=== PATIENT | male | born 1965 | race Caucasian/White ===

== ENCOUNTER 2018-02-10 20:01 | Inpatient (IN) ==
[2018-02-10 20:47] VITALS: BMI 28.3
--- NOTE | 2018-02-10 21:34 | DR.GENAD ---
HPI Time Seen Time Seen by Provider: 02/10/18 21:19 PCP Primary Care Physician: ZAHIDA HANDY HPI Comment HPI Comment: DENIES FEVER. PATIENT FAILED OUT PATIENT TREATMENT. Complaint/Symptoms Chief Complaint Doctors Comments: PAIN, REDNESS AND RED STREAKING LEFT LOWER EXTREMITIES THAT IS GETTING WORSE. PATIENT IS ON BATRIM AND NOT IMPROVING. Chief Complaint:: LEFT LOWER EXTREMITY REDNESS, EDEMA. WARM TO TOUCH. NOTED REDNESS STREAKING ON OUTER CALF OF LEFT LEG. PATIENT DENIES ANY PAIN WITH AMBULATION, DENIES ANY PAIN AT ALL. +DORSALIS PEDIS Self Treatment fo Chief Complaint: RX BACTRIM Q 12HRS. FOR 7 DAYS Nurses notes reviewed Nurses Notes Review: Yes Source History Provided: Patient and Family Member Mode of Arrival Mode of Arrival: Ambulatory Timing Onset of Chief Complaint: 02/02/18 Came on: Suddenly Duration Duration: Constant Duration: Days Severity Severity: Moderate Modifying Factors Worsens:: WALKING. Improves:: NONE. Associated Signs and Symptoms Associated Signs and Symptoms: RED STREAKING, LEG PAIN. PMH PMH Past Medical History: Yes Past Medical History: Diabetes, Dyslipidemia and Hypothyroidism Past Surgical History: No Family History History of Family Medical Conditions: No Social History Does patient currently use any type of tobacco product: No Have you used tobacco products in the last 12 months: No Type of Tobacco Use: None Alcohol Use: None Do you use any recreational Drugs:: No Lives Where: Home infectious screening Have you traveled outside the country in the last 6 months?: No Isolation: Standard ROS Review of Systems Constitutional: No Symptoms Reported Eyes: No Symptoms Reported ENTM: No Symptoms Reported Respiratoy: No Symptoms Reported Cardiovascular: No Symptoms Reported Gastrointestinal/Abdominal: No Symptoms Reported Genitourinary: No Symptoms Reported Neurological: No Symptoms Reported Musculoskeletal: Left, Leg and Foot Integumentary: Change in Color, Rash and Other (SWELLING LEFT FOOT WITH REDNESS AND RED STREAKING TO KNEE LEVEL.) Hematologic/Lymphatic: No Symptoms Reported Endocrine: No Symptoms Reported Psychiatric: No Symptoms Reported All Other Systems: Reviewed and Negative PE Vital Signs Vitals: Temperature 97.5 F Pulse Rate [Left Brachial] 59 Pulse Rate 73 Respiratory Rate 20 Blood Pressure [Left Arm] 125/78 Blood Pressure 137/88 O2 Sat by Pulse Oximetry 99 General Limitations: No Limitations General Appearance: Alert and In No Apparent Distress Head Head Exam: Normal Inspection Eyes Eye exam: Normal Appearance ENT ENT Exam: Normal Exam External Ear Exam: Normal External Inspection TM/Canal Exam: Bilateral: Normal Nose Exam: Normal Nose Exam Mouth Exam: Normal Inspection Throat Exam: Normal Inspection Neck Neck Exam: Normal Inspection Chest Chest Inspection: Normal Inspection Respiratory Respiratory Exam: Normal Lung Sounds Bilat Respiratory Exam: Bilateral: Clear to Auscultation Cardiovascular Cardiovascular Exam: Regular Rate and Normal Rhythm Abdominal Exam Abdominal Exam: Normal Inspection, Normal Bowel Sounds and Soft Extremities Extremities Exam: Tenderness Back Back Exam: Normal Inspection Neurologic Neurological Exam: Alert and Oriented X3; negative Motor Sensory Deficit Psychiatric Psychiatric Exam: Normal Affect and Normal Mood Skin Skin Exam: Erythema MDM Additional Information Additional Information Obtained From: Family Differential Diagnosis Differential Diagnosis: CELLULITIS LLE COURSE Treatment Treatment: SEE ORDERS. Consultation Consultation Comments: DISCUSS PATIENT WITH DR. RAJPUT. HE WILL ADMIT PATIENT. Education/Counseling Education/Counseling: Patient, Family and Education Educated On: Diagnosis ROR Labs Reviewed Laboratory Results Reviewed?: Yes Result Diagrams: 02/11/18 04:18 02/11/18 04:18 Laboratory: WBC 5.9 X10^3/uL (3.6-10.0) 02/11/18 04:18 RBC 4.51 X10^6/uL (4.7-6.0) L 02/11/18 04:18 Hgb 14.1 g/dL (13.5-18.0) 02/11/18 04:18 Hct 39.2 % (42.0-54.0) L 02/11/18 04:18 MCV 87.1 fL (80.0-100.0) 02/11/18 04:18 MCH 31.2 pg (27.0-34.0) 02/11/18 04:18 MCHC 35.9 g/dL (33.0-35.0) H 02/11/18 04:18 RDW 13.0 % (11.6-16.5) 02/11/18 04:18 Plt Count 225 X10^3/uL (150.0-450.0) 02/11/18 04:18 MPV 8.7 fL (7.4-11.0) 02/11/18 04:18 Neut % (Auto) 43.8 % (42.0-75.0) 02/11/18 04:18 Lymph % (Auto) 35.4 % (21.0-51.0) 02/11/18 04:18 [place] % (Auto) 12.4 % (0.0-13.0) 02/11/18 04:18 Eos % (Auto) 7.8 % (0.9-2.9) H 02/11/18 04:18 Baso % (Auto) 0.6 % (0.2-1.0) 02/11/18 04:18 Neut # (Auto) 2.6 x10^3/uL (2.2-4.8) 02/11/18 04:18 Lymph # (Auto) 2.1 X10^3/uL (1.3-2.9) 02/11/18 04:18 [place] # (Auto) 0.7 x10^3/uL (0.3-0.8) 02/11/18 04:18 Eos # (Auto) 0.5 x10^3/uL (0.0-0.2) H 02/11/18 04:18 Baso # (Auto) 0.0 X10^3/uL (0.0-0.1) 02/11/18 04:18 Absolute Nucleated RBC 0.0 /100WBC 02/11/18 04:18 Sodium 137 mmol/L (136-145) 02/11/18 04:18 Corrected Sodium 139 mmol/L (136-145) 02/11/18 04:18 Potassium 3.9 mmol/L (3.5-5.1) 02/11/18 04:18 Chloride 102 mmol/L (98-107) 02/11/18 04:18 Carbon Dioxide 27.7 mmol/L (21-32) 02/11/18 04:18 BUN 14 mg/dL (7-18) 02/11/18 04:18 Creatinine 1.08 mg/dL (0.70-1.30) 02/11/18 04:18 Est GFR (MDRD) Af Amer > 60 (>60) 02/11/18 04:18 Est GFR (MDRD) Non-Af > 60 (>60) 02/11/18 04:18 Glucose 204 mg/dL (65-99) H 02/11/18 04:18 POC Glucose (mg/dL) 164 mg/dL (65-99) H 02/11/18 16:30 Lactic Acid 1.1 mmol/L (0.4-2.0) 02/10/18 21:44 Calcium 8.2 mg/dL (8.5-10.1) L 02/11/18 04:18 Corrected Calcium TNP 02/11/18 04:18 Total Bilirubin 0.30 mg/dL (0.2-1.0) 02/11/18 04:18 AST 24 Units/L (15-37) 02/11/18 04:18 ALT 54 Units/L (12-78) 02/11/18 04:18 Alkaline Phosphatase 83 Units/L (46-116) 02/11/18 04:18 C-Reactive Protein 9.40 mg/L (0-3.0) H 02/10/18 21:44 Total Protein 7.1 g/dL (6.4-8.2) 02/11/18 04:18 Albumin 3.4 g/dL (3.4-5.0) 02/11/18 04:18 Globulin 3.7 g/dL (2.5-4.5) 02/11/18 04:18 Albumin/Globulin Ratio 0.9 Ratio (1.1-2.1) L 02/11/18 04:18
[2018-02-10 22:13] LABS: BASOPHILS # (AUTO) 0.1 X10^3/uL (0.0-0.1); EOSINOPHILS # (AUTO) 0.5 x10^3/uL (0.0-0.2); EOSINOPHILS % (AUTO) 7.7 % (0.9-2.9); HEMATOCRIT 40.3 % (42.0-54.0); HEMOGLOBIN 14.3 g/dL (13.5-18.0); LYMPHOCYTES # (AUTO) 2.4 X10^3/uL (1.3-2.9); MEAN CORPUSCULAR HGB CONC 35.5 g/dL (33.0-35.0); MEAN CORPUSCULAR VOLUME 87.4 fL (80.0-100.0); MEAN PLATELET VOLUME 8.7 fL (7.4-11.0); MONOCYTES # (AUTO) 0.8 x10^3/uL (0.3-0.8); NEUTROPHILS # (AUTO) 2.7 x10^3/uL (2.2-4.8); NEUTROPHILS % (AUTO) 42.3 % (42.0-75.0); PLATELET COUNT 232 X10^3/uL (150.0-450.0); RED BLOOD COUNT 4.62 X10^6/uL (4.7-6.0); RED CELL DISTRIBUTION WIDTH 13.3 % (11.6-16.5); WHITE BLOOD COUNT 6.4 X10^3/uL (3.6-10.0)
[2018-02-10 22:22] LABS: ALANINE AMINOTRANSFERASE 57 Units/L (12-78); ALBUMIN 3.8 g/dL (3.4-5.0); ALKALINE PHOSPHATASE 93 Units/L (46-116); ASPARTATE AMINO TRANSFERASE 26 Units/L (15-37); BLOOD UREA NITROGEN 15 mg/dL (7-18); CARBON DIOXIDE 28.9 mmol/L (21-32); CHLORIDE 101 mmol/L (98-107); COR NA(FOR HYPERGLY) 138 mmol/L (136-145); CREATININE 1.33 mg/dL (0.70-1.30); SODIUM 136 mmol/L (136-145); TOTAL PROTEIN 7.8 g/dL (6.4-8.2); eGFR NON BLACK RACES 60 (>60)
[2018-02-10 22:28] LABS: LACTIC ACID 1.1 mmol/L (0.4-2.0)
[2018-02-11] MEDS ORDERED: NS 1000 ML 1,000 ML ONE (00:02)
[2018-02-11] MEDS ORDERED: VANCOMYCIN 1 GRAM PREMIX (ADDVANTAGE) 250 ML IV ONE (00:02)
[2018-02-11] MEDS ORDERED: MORPHINE SULFATE INJ 4 MG IVP PRN (00:11)
[2018-02-11] MEDS ORDERED: PHENERGAN TAB 25 MG PO PRN (00:11)
[2018-02-11] MEDS: NS 1000 ML 1,000 ML IV SCH ×3 (00:12→16:39)
[2018-02-11] MEDS: VANCOMYCIN HCL 1 GM VIAL 1 G in D5W 250 ML IV 250 ML IV SCH ×3 (00:12→20:28)
[2018-02-11] MEDS ORDERED: HumuLIN R SUBCUT PRN (00:14)
[2018-02-11 05:20] LABS: BASOPHILS % (AUTO) 0.6 % (0.2-1.0); EOSINOPHILS # (AUTO) 0.5 x10^3/uL (0.0-0.2); EOSINOPHILS % (AUTO) 7.8 % (0.9-2.9); HEMATOCRIT 39.2 % (42.0-54.0); HEMOGLOBIN 14.1 g/dL (13.5-18.0); LYMPHOCYTES # (AUTO) 2.1 X10^3/uL (1.3-2.9); LYMPHOCYTES % (AUTO) 35.4 % (21.0-51.0); MEAN CORPUSCULAR HEMOGLOBIN 31.2 pg (27.0-34.0); MEAN CORPUSCULAR HGB CONC 35.9 g/dL (33.0-35.0); MEAN CORPUSCULAR VOLUME 87.1 fL (80.0-100.0); MEAN PLATELET VOLUME 8.7 fL (7.4-11.0); MONOCYTES # (AUTO) 0.7 x10^3/uL (0.3-0.8); MONOCYTES % (AUTO) 12.4 % (0.0-13.0); NEUTROPHILS # (AUTO) 2.6 x10^3/uL (2.2-4.8); NEUTROPHILS % (AUTO) 43.8 % (42.0-75.0); PLATELET COUNT 225 X10^3/uL (150.0-450.0); RED BLOOD COUNT 4.51 X10^6/uL (4.7-6.0); WHITE BLOOD COUNT 5.9 X10^3/uL (3.6-10.0)
[2018-02-11 05:26] LABS: ALANINE AMINOTRANSFERASE 54 Units/L (12-78); ALBUMIN 3.4 g/dL (3.4-5.0); ALKALINE PHOSPHATASE 83 Units/L (46-116); ASPARTATE AMINO TRANSFERASE 24 Units/L (15-37); BLOOD UREA NITROGEN 14 mg/dL (7-18); CALCIUM 8.2 mg/dL (8.5-10.1); CARBON DIOXIDE 27.7 mmol/L (21-32); CHLORIDE 102 mmol/L (98-107); COR NA(FOR HYPERGLY) 139 mmol/L (136-145); CREATININE 1.08 mg/dL (0.70-1.30); SODIUM 137 mmol/L (136-145); TOTAL PROTEIN 7.1 g/dL (6.4-8.2); eGFR NON BLACK RACES > 60 (>60)
[2018-02-11] MEDS: ZOSYN VIAL 3.375 GRAMS 3.375 G in NS 100 ML IV + SPIKE MINIBAG* 100 ML IV SCH ×3 (05:29→22:00)
[2018-02-11] MEDS: HumuLIN R SUBCUT PRN ×4 (05:32→22:00)
[2018-02-11] MEDS ORDERED: NS 100 ML IV 100 ML IV ONE (15:15)
--- NOTE | 2018-02-11 18:01 | CT ---
CTA OF THE ABDOMEN AND PELVIS AND BILATERAL LOWER EXTREMITY RUNOFF WITHOUT AND WITH CONTRAST CLINICAL INDICATION: Left lower extremity cellulitis. TECHNIQUE: Written informed consent was obtained. Non-gated spiral axial images of the lower thorax, abdomen, pelvis and lower extremities were obtained with nonionic intravenous contrast. 3D reconstru ctions were performed. Dose reduction techniques including Automated Exposure Control (AEC) and adjus tment of mA and kV were utlized. COMPARISON: None. FINDINGS: VASCULAR: Abdominal Aorta: No significant stenosis. Celiac [place]: No significant stenosis. Superior Mesenteric Artery: No significant stenosis. Renal Arteries: No significant stenosis. Inferior Mesenteric Artery: No significant stenosis. RIGHT PELVIS/LOWER EXTREMITY: Right Common Iliac Artery: No significant stenosis. Right Internal Iliac Artery: No significant stenosis. Right External Iliac Artery: No significant stenosis. Right Common Femoral Artery: No significant stenosis. Right Profunda Femoris Artery: No significant stenosis. Right Superficial Femoral Artery: No significant stenosis. Right Popliteal Artery: No significant stenosis. Right Anterior Tibial Artery: No significant stenosis. Crosses the ankle to supply the dorsalis pedi s artery. Right Tibioperoneal Trunk: No significant stenosis. Right Posterior Tibial Artery: No significant stenosis. Crosses the ankle to supply the plantar arch . Right Peroneal Artery: No significant stenosis. LEFT PELVIS/LOWER EXTREMITY: Left Common Iliac Artery: No significant stenosis. Left Internal Iliac Artery: No significant stenosis. Left External Iliac Artery: No significant stenosis. Left Common Femoral Artery: No significant stenosis. Left Profunda Femoris Artery: No significant stenosis. Left Superficial Femoral Artery: No significant stenosis. Left Popliteal Artery: No significant stenosis. Left Anterior Tibial Artery: No significant stenosis. Crosses the ankle to supply the dorsalis pedis artery. Left Tibioperoneal Trunk: No significant stenosis. Left Posterior Tibial Artery: No significant stenosis. Crosses the ankle to supply the plantar arch. Left Peroneal Artery: No significant stenosis. Abdomen without: Gallstones present. No evidence of gallbladder inflammation. Punctate 1 mm right john al stone Abdomen with: Visualized portions of the liver and spleen are normal in size, enhancement characteris tics and contour. Gallbladder is present. No gallbladder wall thickening. Visualized portion of the p ancreas unremarkable. Visualized portions of the kidneys are unremarkable. No bowel obstruction or inflammation. No abnormal appearing mesenteric or retroperitoneal lymph node s. No free fluid or fluid collections. Pelvis without: No distal ureteral stones or bladder stones. Pelvis with: The bladder is normal in appearance. Prostate not enlarged. No free fluid or abnormal p elvic lymph nodes. No aggressive osseous lesions. IMPRESSION: 1. No significant stenosis or occlusion of the artery of the lower extremities. 2. Cholelithiasis without cholecystitis. Reported By:
[2018-02-11] MEDS ORDERED: SNACK - Diabetic Appropriate PO SCH (20:00)
--- NOTE | 2018-02-11 20:06 | DR.H&P ---
H&P - History & Physical for Day of: H&P Date: 02/10/18 - Chief Complaint Chief Complaint: LEFT LEG REDNESS, EDEMA, AND WARMTH - History of Present Illness History of Present Illness: IS A 52 YEAR OLD PATIENT OF [employer] WHO PRESENTED TO THE EMERGENCY ROOM WITH COMPLAINTS OF LEFT LEG REDNESS, EDEMA, AND WARMTH. HE REPORTS TAKING BACTRIM FOR THE PAST WEEK, HOWEVER, SYMPTOMS HAVE ONLY WORSENED. ON EXAMINATION, THERE IS ERYTHEMA AND EDEMA NOTED TO THE OUTTER CALF OF THE LEFT LEG. HE DENIES PAIN TO SITE. MEDICAL HISTORY INCLUDES DIABETES, DYSLIPIDEMIA, AND HYPOTHYROIDISM. ON ARRIVAL, VITALS WERE 98.3-73-18-98%-137/88. LABS WERE OBTAINED. ABNORMAL LAB VALUES INCLUDE THE FOLLOWING: RBC 4.62, HCT 40.3, CREATININE 1.33, GLUCOSE 171, CRP 9.40. BLOOD CULTURES ARE PENDING. HE WAS ADMITTED TO THE HOSPITAL FOR FURTHER EVALUATION AND TREATMENT. HE WAS STARTED ON VANCOMYCIN 1GM IV Q12H PRN PAIN, ZOSYN 3.375GM IV TID, AND MORPHINE 4MG IV Q6H PRN PAIN. WE PLAN TO FOLLOW UP WITH AM LABS AND CONTINUE TO MONITOR PATIENT. - Past Medical History Past Medical History: Dyslipidemia, Diabetes, Hypothyroidism - Family History Family Medical History: Cancer - Social History Does patient currently use any type of tobacco product: No Have you used tobacco products in the last 12 months: No Type of Tobacco Use: None Alcohol Use: None Drug Use: None - Medications Home Medications: codeine Allergy (Verified 02/10/18 20:47) CONTINUE taking the following medications atorvastatin [Lipitor] 40 mg PO QDAY 02/10/18 [History] levothyroxine [Synthroid] 75 mcg PO QDAY 02/10/18 [History] metformin 1,000 mg PO BID 02/10/18 [History] sulfamethoxazole-trimethoprim [Bactrim DS] 1 tab PO Q12H 02/10/18 [History] - Physical Exam Vital Signs: Temperature 98.4 F Pulse Rate [Left Brachial] 70 Pulse Rate 73 Respiratory Rate 18 Blood Pressure [Left Arm] 133/80 Blood Pressure 137/88 O2 Sat by Pulse Oximetry 98 - Allergies Allergies/Adverse Reactions: Allergies Allergy/AdvReac Type Severity Reaction Status Date / Time codeine Allergy Verified 02/10/18 20:47
[2018-02-12] MEDS: NS 1000 ML 1,000 ML IV SCH (00:13)
[2018-02-12] MEDS: ZOSYN VIAL 3.375 GRAMS 3.375 G in NS 100 ML IV + SPIKE MINIBAG* 100 ML IV SCH (05:23)
[2018-02-12 05:56] LABS: BASOPHILS # (AUTO) 0.1 X10^3/uL (0.0-0.1); BASOPHILS % (AUTO) 0.7 % (0.2-1.0); EOSINOPHILS # (AUTO) 0.5 x10^3/uL (0.0-0.2); EOSINOPHILS % (AUTO) 6.9 % (0.9-2.9); HEMATOCRIT 43.5 % (42.0-54.0); HEMOGLOBIN 15.3 g/dL (13.5-18.0); LYMPHOCYTES # (AUTO) 2.4 X10^3/uL (1.3-2.9); LYMPHOCYTES % (AUTO) 32.2 % (21.0-51.0); MEAN CORPUSCULAR HEMOGLOBIN 30.9 pg (27.0-34.0); MEAN CORPUSCULAR HGB CONC 35.1 g/dL (33.0-35.0); MEAN CORPUSCULAR VOLUME 87.9 fL (80.0-100.0); MONOCYTES # (AUTO) 0.9 x10^3/uL (0.3-0.8); MONOCYTES % (AUTO) 12.3 % (0.0-13.0); NEUTROPHILS # (AUTO) 3.6 x10^3/uL (2.2-4.8); NEUTROPHILS % (AUTO) 47.9 % (42.0-75.0); PLATELET COUNT 255 X10^3/uL (150.0-450.0); RED BLOOD COUNT 4.95 X10^6/uL (4.7-6.0); RED CELL DISTRIBUTION WIDTH 13.1 % (11.6-16.5); WHITE BLOOD COUNT 7.5 X10^3/uL (3.6-10.0)
[2018-02-12 06:13] LABS: ALANINE AMINOTRANSFERASE 61 Units/L (12-78); ALBUMIN 3.5 g/dL (3.4-5.0); ALKALINE PHOSPHATASE 89 Units/L (46-116); BLOOD UREA NITROGEN 13 mg/dL (7-18); CALCIUM 8.6 mg/dL (8.5-10.1); CARBON DIOXIDE 27.7 mmol/L (21-32); CHLORIDE 104 mmol/L (98-107); COR NA(FOR HYPERGLY) 140 mmol/L (136-145); SODIUM 139 mmol/L (136-145); TOTAL PROTEIN 7.5 g/dL (6.4-8.2); eGFR NON BLACK RACES > 60 (>60)
[2018-02-12 06:29] LABS: ASPARTATE AMINO TRANSFERASE 25 Units/L (15-37)
--- NOTE | 2018-02-12 08:37 | PCM.PROG ---
Progress Note - Progress Note for Day of Date of Exam: 02/11/18 - Subjective Subjective: WAS ADMITTED FOR LEFT LOWER EXTREMITY CELLULITIS, FAILED OUTPATIENT TREATMENT. TODAY, HE IS ALERT AND ORIENTED, LYING IN BED ON MORNING ROUNDS. HE CONTINUES WITH ERYTHEMA AND EDEMA TO THE LEFT LOWER LEG, HOWEVER, REDNESS HAS DECREASED THIS MORNING COMPARED TO YESTERDAY. NO OPEN LESIONS NOTED. HE CONTINUES TO REPORT PAIN TO THE LEG AT TIMES. HIS VITALS THIS MORNING ARE 97.9-62-18-98%-134/87. LABS WERE OBTAINED. ABNORMAL LAB VALUES INCLUDE THE FOLLOWING: RBC 4.51, HCT 39.2, GLUCOSE 204, CALCIUM 8.2. HE IS CURRENTLY RECEIVING VANCOMYCIN AND ZOSYN IV. WE WILL CONTINUE WITH CURRENT PLAN OF CARE TODAY. WE WILL ALSO OBTAIN A LOWER EXTREMITY CTA WITH CONTRAST TO ASSESS BLOOD FLOW. HE IS DIABETIC, SO WE WILL MONITOR OTBS AND ADMINISTER HUMULIN R SLIDING SCALE. OTHERWISE, WE WILL FOLLOW UP WITH AM LABS AND CONTINUE TO MONITOR PATIENT. - Past Medical Family Social History Past Med/Fam/Surg Hx: No changes since H&P Allergies: Allergies codeine Allergy (Verified 02/10/18 20:47) - Review of Systems ROS: No change since H&P - Vital Signs and I&O's Vital Signs: Temperature 97.5 F Pulse Rate [Left Brachial] 59 Pulse Rate 73 Respiratory Rate 20 Blood Pressure [Left Arm] 125/78 Blood Pressure 137/88 O2 Sat by Pulse Oximetry 99 Intake and Output: Intake & Output 02/09/18 02/10/18 02/11/18 02/12/18 11:59 11:59 11:59 11:59 Intake Total 985 / 985 2740 / 2740 Output Total 1680 / 1680 Balance 985 / 985 1060 / 1060 - Physical Exam Oriented: Normal Eyes: Normal Ear: Normal Nose: Normal Throat: Normal Respiratory: Normal Cardiovascular: Edema (LLE ) : Normal Auscultation: Bowel Sounds: Normal Palpation: Normal Tenderness: Normal Skin: Red (LLE ), Tender, Hot Musculoskeletal: Left, Leg, Swelling, Tender Psychiatric: Normal Mood Description: Calm Affect: Normal Speech Pattern: Clear, Appropriate - Laboratory and Diagnostics Result Diagrams: 02/12/18 04:11 02/12/18 04:11 Labs: Laboratory WBC 7.5 X10^3/uL (3.6-10.0) 10/04/18 04:11 RBC 4.95 X10^6/uL (4.7-6.0) 02/12/18 04:11 Hgb 15.3 g/dL (13.5-18.0) 02/12/18 04:11 Hct 43.5 % (42.0-54.0) 02/12/18 04:11 MCV 87.9 fL (80.0-100.0) 02/12/18 04:11 MCH 30.9 pg (27.0-34.0) 02/12/18 04:11 MCHC 35.1 g/dL (33.0-35.0) H 02/12/18 04:11 RDW 13.1 % (11.6-16.5) 02/12/18 04:11 Plt Count 255 X10^3/uL (150.0-450.0) 02/12/18 04:11 MPV 9.0 fL (7.4-11.0) 02/12/18 04:11 Neut % (Auto) 47.9 % (42.0-75.0) 02/12/18 04:11 Lymph % (Auto) 32.2 % (21.0-51.0) 02/12/18 04:11 [place] % (Auto) 12.3 % (0.0-13.0) 02/12/18 04:11 Eos % (Auto) 6.9 % (0.9-2.9) H 02/12/18 04:11 Baso % (Auto) 0.7 % (0.2-1.0) 02/12/18 04:11 Neut # (Auto) 3.6 x10^3/uL (2.2-4.8) 02/12/18 04:11 Lymph # (Auto) 2.4 X10^3/uL (1.3-2.9) 02/12/18 04:11 [place] # (Auto) 0.9 x10^3/uL (0.3-0.8) H 02/12/18 04:11 Eos # (Auto) 0.5 x10^3/uL (0.0-0.2) H 02/12/18 04:11 Baso # (Auto) 0.1 X10^3/uL (0.0-0.1) 02/12/18 04:11 Absolute Nucleated RBC 0.1 /100WBC 02/12/18 04:11 Sodium 139 mmol/L (136-145) 02/12/18 04:11 Corrected Sodium 140 mmol/L (136-145) 02/12/18 04:11 Potassium 4.1 mmol/L (3.5-5.1) 02/12/18 04:11 Chloride 104 mmol/L (98-107) 02/12/18 04:11 Carbon Dioxide 27.7 mmol/L (21-32) 02/12/18 04:11 BUN 13 mg/dL (7-18) 02/12/18 04:11 Creatinine 1.00 mg/dL (0.70-1.30) 02/12/18 04:11 Est GFR (MDRD) Af Amer > 60 (>60) 02/12/18 04:11 Est GFR (MDRD) Non-Af > 60 (>60) 02/12/18 04:11 Glucose 151 mg/dL (65-99) H 02/12/18 04:11 POC Glucose (mg/dL) 164 mg/dL (65-99) H 02/11/18 16:30 Lactic Acid 1.1 mmol/L (0.4-2.0) 02/10/18 21:44 Calcium 8.6 mg/dL (8.5-10.1) 02/12/18 04:11 Corrected Calcium TNP 02/12/18 04:11 Total Bilirubin 0.30 mg/dL (0.2-1.0) 02/12/18 04:11 AST 25 Units/L (15-37) 02/12/18 04:11 ALT 61 Units/L (12-78) 02/12/18 04:11 Alkaline Phosphatase 89 Units/L (46-116) 02/12/18 04:11 C-Reactive Protein 9.40 mg/L (0-3.0) H 02/10/18 21:44 Total Protein 7.5 g/dL (6.4-8.2) 02/12/18 04:11 Albumin 3.5 g/dL (3.4-5.0) 02/12/18 04:11 Globulin 4.0 g/dL (2.5-4.5) 02/12/18 04:11 Albumin/Globulin Ratio 0.9 Ratio (1.1-2.1) L 02/12/18 04:11 - Plan (1) Lower extremity cellulitis Status: Acute Qualifiers: Laterality: left Qualified Code(s): L03.116 - Cellulitis of left lower limb Plan: IV VANCOMYCIN, IV ZOSYN, OBTAIN LOWER EXTREMITY CTA, CONTINUE TO MONITOR (2) Diabetes mellitus Status: Acute Qualifiers: Diabetes mellitus type: type 2 Diabetes mellitus exterminator termite insulin use: w ith exterminator termite use Diabetes mellitus complication status: with unspecified complications Qualified Code(s): E11.8 - Type 2 diabetes mellitus with u nspecified complications; Z79.4 - senior care (current) use of insulin Plan: OBTAIN OTBS ACHS, SLIDING SCALE HUMULIN R INSULIN.
[2018-02-12] MEDS ORDERED: SYNTHROID 75 mcg TAB PO SCH (09:00)
[2018-02-12] MEDS: VANCOMYCIN HCL 1 GM VIAL 1 G in D5W 250 ML IV 250 ML IV SCH (09:50)
[2018-02-12 10:17] LABS: CREATININE 1.06 mg/dL (0.70-1.30); VANCOMYCIN,TROUGH 3.7 ug/mL (15-20)
[2018-02-12] MEDS: LIPITOR TAB 40 MG PO SCH ×2 (10:41→10:44)
[2018-02-12 11:38] VITALS: BP 150/77
[2018-02-12] MEDS ORDERED: PHARMACY COMMENT IV NR (20:30)
--- NOTE | 2018-03-31 19:26 | DR.CARTERD ---
- Discharge Summary for: Discharge Summary for Date of:: 02/12/18 - Admission Date Date of Admission: 02/10/18 - Admission Diagnoses Admission Diagnosis: (1) Lower extremity cellulitis (2) Diabetes mellitus - Discharge Date Discharge Date: 02/12/18 - Discharge Diagnoses Discharge Diagnosis: (1) Lower extremity cellulitis (2) Diabetes mellitus - Hospital Course Hospital Course: DAY ONE, IS A 52 YEAR OLD PATIENT OF [facility] WHO PRESENTED TO THE EMERGENCY ROOM WITH COMPLAINTS OF LEFT LEG REDNESS, EDEMA, AND WARMTH. HE REPORTED TAKING BACTRIM FOR THE PAST WEEK, HOWEVER, SYMPTOMS HAVE ONLY WORSENED. ON EXAMINATION, THERE WAS ERYTHEMA AND EDEMA NOTED TO THE OUTTER CALF OF THE LEF T LEG. HE DENIED PAIN TO SITE. MEDICAL HISTORY INCLUDED DIABETES, DYSLIPIDEMIA, AND HYPOTHYROIDISM. ON ARRIVAL, VITALS WERE 98.3-73-18-98%-137/88. LABS WERE OBTAINED. ABNORMAL LAB VALUES INCLUDED THE FOLLOWING: RBC 4.62, HCT 40.3, CREATININE 1.33, GLUCOSE 171, CRP 9.40. BLOOD CULTURES WERE PENDING. HE WAS ADMITTED TO THE HOSPITAL FOR FURTHER EVALUATION AND TREATMENT. HE WAS STARTED ON VANCOMYCIN 1GM IV Q12H PRN PAIN, ZOSYN 3.375GM IV TID, AND MORPHINE 4MG IV Q6H PRN PAIN. WE PLANNED TO FOLLOW UP WITH AM LABS AND CONTINUED TO MONITOR PATIENT. DAY TWO, WAS ADMITTED FOR LEFT LOWER EXTREMITY CELLULITIS, FAILED OUTPATIENT TREATMENT. TODAY, HE WAS ALERT AND ORIENTED, LYING IN BED ON MORNING ROUNDS. HE CONTINUED WITH ERYTHEMA AND EDEMA TO THE LEFT LOWER LEG, HOWEVER, REDNESS HAD DECREASED THIS MORNING COMPARED TO YESTERDAY. NO OPEN LESIONS NOTED. HE CONTINUED TO REPORT PAIN TO THE LEG AT TIMES. HIS VITALS THIS MORNING WERE 97.9-62-18-98%-134/87. LABS WERE OBTAINED. ABNORMAL LAB VALUES INCLUDED THE FOLLOWING: RBC 4.51, HCT 39.2, GLUCOSE 204, CALCIUM 8.2. HE IS CURRENTLY RECEIVING VANCOMYCIN AND ZOSYN IV. WE WILL CONTINUE WITH CURRENT PLAN OF CARE TODAY. WE OBTAINED A LOWER EXTREMITY CTA WITH CONTRAST TO ASSESS BLOOD FLOW. HE IS DIABETIC, SO WE MONITORED OTBS AND ADMINISTERED HUMULIN R SLIDING SCALE. WE FOLLOWED UP WITH AM LABS AND CONTINUED TO MONITOR PATIENT. DAY THREE, PATIENT SYMPTOMS IMPROVING. REDNESS AND EDEMA DECREASED. LABS WITHIN NORMAL LIMITS. BLOOD CULTURES WERE NEGATIVE. LUNGS WERE NOTED TO BE CLEAR BILATERALLY. NO DISTRESS NOTED OR VOICED AT THIS TIME. WE PLANNED FOR DISCHARGE. INSTRUCTIONS FOR MEDICATIONS AND FOLLOW UP WERE DISCUSSED WITH PATIENT AND FAMILY, BOTH VOICED UNDERSTANDING. PATIENT DISCHARGED HOME IN STABLE CONDITION WITH FAMILY. - Discharge Medications Discharge Medications: Home Medication List atorvastatin [Lipitor] 40 mg PO QDAY 02/10/18 [History] levothyroxine [Synthroid] 75 mcg PO QDAY 02/10/18 [History] metformin 1,000 mg PO BID 02/10/18 [History] doxycycline hyclate [Vibramycin] 100 mg PO BID #28 cap 02/12/18 [Rx] Prescriptions: doxycycline hyclate [Vibramycin] Sebastián Piña - Discharge Disposition Discharge Disposition: PATIENT TO FOLLOW UP WITH PCP (ZAHIDA HANDY) IN ONE WEEK. PATIENT DISCHARGED HOME WITH FAMILY.
== END 2018-02-12 11:45 | disposition home or self-care (01) | DRG 603 ==
LOC: ER 20:01 → MED/SURG 23:20
PROVIDERS: ADMIT Internal Medicine; ATTEND Internal Medicine
DX: Z79.4 Long term (current) use of insulin; L03.116 Cellulitis of left lower limb; E03.8 Other specified hypothyroidism; R60.0 Localized edema; E78.2 Mixed hyperlipidemia; Z79.899 Other long term (current) drug therapy; E11.65 Type 2 diabetes mellitus with hyperglycemia
CPT/HCPCS: 36415; 73706; 80053; 80202; 82565; 83605; 85025; 86140; 87040; 96365; 96374; 99282; 99284; A4222; J1815; J2543; J3370; J7030; J7050; J7060